=== PATIENT | male | born 2000 | race Caucasian/White ===

== ENCOUNTER 2022-10-27 10:14 | Emergency (ER) | payer SELFPAY ==
[~2022-10-27] VITALS: Ht 175.3 cm; Wt 82.1 kg
[2022-10-27 10:22] VITALS: BP 125/64
--- NOTE | 2022-10-27 10:30 | NUR ---
22/M WALKED IN ACCOMPANIED BY MOM C/O ELEVATED BS AND UNABLE TO KEEP IT DOWN. PT REPORTS TAKING INSULIN LAST NIGHT. DENIES NVD. PMH: TYPE 1 DIABETES NKA
--- NOTE | 2022-10-27 10:49 | NUR ---
PT AMBULATED TO ER BED 2 WITH MOTHER
[2022-10-27] MEDS ORDERED: NACL 0.9% 1,000 ML IV SCH (11:00)
[2022-10-27 11:30] LABS: APPEARANCE,URINE CLEAR (CLEAR); BILIRUBIN,URINE NEGATIVE (NEGATIVE); BLOOD, URINE NEGATIVE (NEGATIVE); COLOR,URINE YELLOW (YELLOW); LEUKOCYTE ESTERASE ,URINE NEGATIVE (NEGATIVE); NITRITE, URINE NEGATIVE (NEGATIVE); PH,URINE 7.5 (5.0-9.0); UGLUCOSE 3+ (NEGATIVE)
--- NOTE | 2022-10-27 11:30 | NUR ---
VBG DRAWN AND GIVEN TO RT
[2022-10-27 11:33] LABS: BASOPHILS # (AUTO) 0.1 K/uL (0.00-0.22); BASOPHILS % (AUTO) 1.1 % (0.0-2.0); EOSINOPHILS # (AUTO) 0.1 K/uL (0-0.4); EOSINOPHILS % (AUTO) 1.5 % (0.0-4.0); HEMATOCRIT 43.4 % (36-52); HEMOGLOBIN 14.6 g/dL (12.0-18.0); LYMPHOCYTES # (AUTO) 1.8 K/uL (2.0-11.5); LYMPHOCYTES % (AUTO) 31.7 % (20.5-51.1); MEAN CORPUSCULAR HEMOGLOBIN 29 pg (27-31); MEAN CORPUSCULAR HGB CONC 34 g/dL (33-37); MEAN CORPUSCULAR VOLUME 84.9 fL (80-94); MONOCYTES # (AUTO) 0.3 K/uL (0.8-1.0); MONOCYTES % (AUTO) 5.5 % (1.7-9.3); NEUTROPHILS # (AUTO) 3.4 K/uL (1.8-7.7); NEUTROPHILS % (AUTO) 60.2 % (42.2-75.2); PLATELET COUNT (AUTO) 320 K/uL (140-450); RED BLOOD CELL COUNT(AUTO) 5.11 MIL/uL (4.20-6.10); RED CELL DISTRIBUTION WIDTH 13.2 % (11.6-13.7); WHITE BLOOD COUNT (AUTO) 5.7 K/uL (4.8-10.8)
[2022-10-27 11:50] LABS: ALBUMIN 3.6 g/dL (3.4-5.0); ANION GAP 8.8 (8-16); CARBON DIOXIDE 30.9 mmol/L (21-32); CREATININE 1.2 mg/dL (0.6-1.3); POTASSIUM 5.7 mmol/L (3.5-5.1); TOTAL BILIRUBIN 0.4 mg/dL (0.0-1.0)
[2022-10-27] MEDS ORDERED: INSULIN REGULAR, HUMAN 100 UNIT/ML VIAL IVP ONE (11:55)
[2022-10-27 13:03] VITALS: BP 101/60
--- NOTE | 2022-10-27 14:00 | NUR ---
Patient discharged with v/s stable. Written and verbal after care instructions given and explained. Patient verbalized understanding. Ambulatory with steady gait. All questions addressed prior to discharge. Advised to follow up with PMD.
== END 2022-10-27 14:00 | disposition home or self-care (01) ==
LOC: MED 10:14 → EDBD 10:14 → MED 14:00
DX: E11.65 Type 2 diabetes mellitus with hyperglycemia (principal); Z79.4 Long term (current) use of insulin; Z79.899 Other long term (current) drug therapy
CPT/HCPCS: 36415; 80053; 81003; 82803; 85025; 96361; 96374; 99283; J1815; J7030